=== PATIENT | male | born 1980 | race Caucasian/White ===

== ENCOUNTER 2019-10-06 09:41 | Emergency (ER) | payer OTHER ==
[2019-10-06 09:48] VITALS: RESP 18
[2019-10-06] MEDS ORDERED: KETOROLAC 30 MG/ML 1 ML VIAL IVP STA (10:02)
--- NOTE | 2019-10-06 10:16 | ED ---
ENT HPI - General Chief complaint: Dental/Oral Stated complaint: Dental infection Source: patient Mode of arrival: ambulatory Limitations: no limitations - History of Present Illness Initial comments: Patient is a 39-year-old male presenting to the emergency Department with compl aints of left-sided swelling and dental pain for the past week and a half. Patient states this started approximately 2 weeks ago with some mild swelling of the left side of his face as well as mild dental pain. Patient states he went to a local urgent care and was started on amoxicillin. Patient states the next few days he followed up with his dentist who thought he might have a dental abscess and they did schedule for his tooth to be removed. He was then started on azithromycin. Patient states he currently has 2 days left of the azithromycin. He went to the dentist yesterday however they were not able to pull his tooth secondary to him not being able to open his mouth far enough. The dentist told him to finish his antibiotics and then come back in 2 days for recheck. Patient states he woke up this morning with worsening swelling and worsening pain. Patient states he is barely able to open his mouth at all. He states the swelling has increased into his neck as well. He denies having a fever, nausea, vomiting. Patient states he tried taking some Tylenol for his pain without relief. He is also complaining of left ear pain. He has no other complaints at this time. Upon arrival to the ER, his vital signs are stable. - Related Data Home Medications Medication Instructions Recorded Confirmed Acetaminophen [Tylenol Extra 1,500 mg PO Q8H PRN 10/06/19 10/06/19 Strength] Azithromycin [Zithromax Z-pack] See Taper PO DIRECTED 10/06/19 10/06/19 Echinacea 400 mg PO DAILY 10/06/19 10/06/19 Naproxen [Naprosyn] 500 mg PO BID PRN 10/06/19 10/06/19 Zinc 50 mg PO DAILY 10/06/19 10/06/19 Previous Rx's Medication Instructions Recorded Amoxicillin/Potassium Clav 1 tab PO BID 7 Days #14 tab 10/06/19 [Augmentin 875-125 Tablet] Allergies Allergy/AdvReac Type Severity Reaction Status Date / Time Red meat Allergy Nausea & Uncoded 10/06/19 10:39 Vomiting, fever,stomach pain Review of Systems ROS Statement: Those systems with pertinent positive or pertinent negative responses have been documented in the HPI. ROS Other: All systems not noted in ROS Statement are negative. Past Medical History Past Medical History: No Reported History History of Any Multi-Drug Resistant Organisms: None Reported Past Surgical History: No Surgical Hx Reported Past Psychological History: Anxiety, Depression Smoking Status: Current every day smoker Past Alcohol Use History: None Reported Past Drug Use History: Marijuana General Exam - General Exam Comments Initial Comments: GENERAL: Well-appearing, well-nourished and in no acute distress. HEAD: Atraumatic, normocephalic. EYES: Pupils equal round and reactive to light, extraocular movements intact, sclera anicteric, conjunctiva are normal. ENT: TMs normal, nares patent, oropharynx clear without exudates. Moist mucous membranes. Patient has significant left-sided facial swelling as well as erythema that extends below his left jawline into the left side of his neck. Patient is unable to open his mouth more than an inch, secondary to pain. Upon inspection of his teeth, there are any dental cavities. A full assessment was not able to perform secondary to patient unable to open his mouth. NECK: Normal range of motion. Patient has pain with palpation left side of the neck as well as mild cervical lymph nodes. LUNGS: Breath sounds clear to auscultation bilaterally and equal. No wheezes rales or rhonchi. HEART: Regular rate and rhythm without murmurs, rubs or gallops. ABDOMEN: Soft, nontender, normoactive bowel sounds. No guarding, no rebound. No masses appreciated. : Deferred EXTREMITIES: Normal range of motion, no pitting or edema. No clubbing or cyanosis. NEUROLOGICAL: Normal speech, normal gait. PSYCH: Normal mood, normal affect. SKIN: Warm, Dry, normal turgor, no rashes or lesions noted. Limitations: no limitations Course Vital Signs 10/06/19 10/06/19 10/06/19 09:44 11:29 12:36 Temperature 98 F 98.5 F 100.5 F H Pulse Rate 103 H 73 87 Respiratory 18 18 18 Rate Blood Pressure 129/80 128/78 130/75 O2 Sat by Pulse 100 99 99 Oximetry - Reevaluation(s) Reevaluation #1: 10/06/19 12:12 Dr. Aldrich was consulted. I spoke with Dr. Aldrich and he recommended patient coming in to his office today for tooth extraction as well as a drain placement for the abscess. Dr. Aldrich was also okay with patient being admitted and with him on consult if patient was not able to find a ride to his office today and/or did not want have surgery today. These recommendations were discussed with the patient. Patient will have a friend come pick him up and will take him to the doctor's office. This was again discussed with Dr. Aldrich who will be expecting the patient. Medical Decision Making - Medical Decision Making Patient is a 39-year-old male presenting with left-sided facial swelling and significant pain that has increased over the past week and a half. He has been seeing his dentist for possible dental abscess and has finished a course of amoxicillin and azithromycin. His symptoms drastically increased since last night. Vital signs are stable. Lab work today reveals leukocytosis at 21, CRP is 161. CT of the neck soft tissue reveals a large area that strongly favors a submandibular abscess with significant local mass effect and some mass effect on the airway is deviated to the right. Airway remains patent currently. Patient was started on fluids and Unasyn. Patient is also given pain meds. Case was discussed with Dr. Aldrich. Dr. Aldrich recommended patient come into his office now for tooth extraction as well as a drain placed for the abscess. The patient is in agreement with this and will have a ride from the hospital to Dr. Chavez office. Patient remains stable. Patient is stable for discharge. Patient will be given a prescription for Augmentin to continue outpatient. Patient will not eat or drink anything prior to going to Dr. Chavez office. He is in agreement with this plan of care. Return parameters were discussed with the patient and he verbalized understanding. Case discussed with Dr. Blank who is in agreement with this plan of care. - Lab Data Result diagrams: 10/06/19 10:10 10/06/19 10:10 Lab Results 10/06/19 10/06/19 Range/Units 10:10 10:10 WBC 21.2 H (3.8-10.6) k/uL RBC 4.28 L (4.30-5.90) m/uL Hgb 13.8 (13.0-17.5) gm/dL Hct 41.0 (39.0-53.0) % MCV 95.7 (80.0-100.0) fL MCH 32.1 (25.0-35.0) pg MCHC 33.6 (31.0-37.0) g/dL RDW 12.2 (11.5-15.5) % Plt Count 531 H (150-450) k/uL Neutrophils % 88 % Lymphocytes % 4 % Monocytes % 5 % Eosinophils % 2 % Basophils % 0 % Neutrophils # 18.6 H (1.3-7.7) k/uL Lymphocytes # 0.9 L (1.0-4.8) k/uL Monocytes # 1.0 (0-1.0) k/uL Eosinophils # 0.5 (0-0.7) k/uL Basophils # 0.0 (0-0.2) k/uL ESR 64 H (0-15) mm/hr Sodium 139 (137-145) mmol/L Potassium 4.9 (3.5-5.1) mmol/L Chloride 101 (98-107) mmol/L Carbon Dioxide 30 (22-30) mmol/L Anion Gap 8 mmol/L BUN 9 (9-20) mg/dL Creatinine 0.73 (0.66-1.25) mg/dL Est GFR (CKD-EPI)AfAm >90 (>60 ml/min/1.73 sqM) Est GFR (CKD-EPI)NonAf >90 (>60 ml/min/1.73 sqM) Glucose 162 H (74-99) mg/dL Calcium 9.7 (8.4-10.2) mg/dL Total Bilirubin 0.5 (0.2-1.3) mg/dL AST 20 (17-59) U/L ALT 16 (4-49) U/L Alkaline Phosphatase 112 (38-126) U/L C-Reactive Protein 161.3 H (<10.0) mg/L Total Protein 7.4 (6.3-8.2) g/dL Albumin 4.0 (3.5-5.0) g/dL Disposition Clinical Impression: Dental abscess Disposition: HOME SELF-CARE Condition: Stable Instructions (If sedation given, give patient instructions): Dental Abscess (ED) Additional Instructions: Please return to the Emergency Department if symptoms worsen or any other concerns. Go directly to Dr. Chavez office. Do not eat or drink anything. Continue with antibiotics as directed. Prescriptions: Amoxicillin/Potassium Clav [Augmentin 875-125 Tablet] 1 tab PO BID 7 Days #14 tab Is patient prescribed a controlled substance at d/c from ED?: No Referrals: None,Stated [Primary Care Provider] - 1-2 days Vinnie Aldrich DDS [STAFF PHYSICIAN] - 1-2 days
[2019-10-06 10:20] LABS: Basophils % (A) 0 %; Eosinophils # (A) 0.5 k/uL (0-0.7); Eosinophils % (A) 2 %; HGB 13.8 gm/dL (13.0-17.5); Lymphocytes # (A) 0.9 k/uL (1.0-4.8); Lymphocytes % (A) 4 %; MCH 32.1 pg (25.0-35.0); MCHC 33.6 g/dL (31.0-37.0); MCV 95.7 fL (80.0-100.0); Mean Platelet Volume 7.1; Monocytes % (A) 5 %; Neutrophils # (A) 18.6 k/uL (1.3-7.7); Neutrophils % (A) 88 %; Platelet Count 531 k/uL (150-450); RBC 4.28 m/uL (4.30-5.90); RDW 12.2 % (11.5-15.5); WBC 21.2 k/uL (3.8-10.6)
[2019-10-06 10:35] LABS: ALT 16 U/L (4-49); AST 20 U/L (17-59); African American GFR (CKD) >90 (>60 ml/min/1.73 sqM); Alkaline Phosphatase 112 U/L (38-126); Anion Gap 8 mmol/L; Blood Urea Nitrogen 9 mg/dL (9-20); Calcium 9.7 mg/dL (8.4-10.2); Carbon Dioxide 30 mmol/L (22-30); Chloride 101 mmol/L (98-107); Glucose 162 mg/dL (74-99); Non-African American GFR(CKD) >90 (>60 ml/min/1.73 sqM); Potassium 4.9 mmol/L (3.5-5.1); Sodium 139 mmol/L (137-145); Total Bilirubin 0.5 mg/dL (0.2-1.3); Total Protein 7.4 g/dL (6.3-8.2)
[2019-10-06] MEDS ORDERED: AMPICILLIN-SULBACTAM 3 GM in SODIUM CHLORIDE 0.9% 100 ML IVPB STA (10:40)
[2019-10-06] MEDS ORDERED: SODIUM CHLORIDE 0.9% 1,000 ML IV STA (10:40)
--- NOTE | 2019-10-06 10:54 | CT ---
EXAMINATION TYPE: CT soft tissue neck w con DATE OF EXAM: 10/06/2019 HISTORY: Left side facial pain and swelling COMPARISON: NONE CT DLP: 244.4 mGycm. Automated Exposure Control for Dose Reduction was Utilized. TECHNIQUE: CT scan of the neck is performed with IV Contrast, patient injected with 100 mL of Isovue 300, axial images are obtained, coronal and sagittal reformatted images are reviewed. FINDINGS: Airway: Nasopharyngeal and oropharyngeal airways are patent. Some epiglottis and vallecula are within normal limits. Hypopharyngeal airway and proximal trachea are unremarkable. Visualized upper lungs a re clear. Parotid/submandibular glands: No gross abnormality seen. Carotid/Vascular Structures: No significant plaque or stenosis carotid bulb level. Osseous Structures: Slight grade 1 retrolisthesis C5 on C6 and C6 on C7 . Other: The localizer image shows asymmetric left submandibular swelling. CT images correlate with lar ge hypodense area angle of the mandible measuring 5.6 transversely x 4.0 cm axial image 57 by roughly 3.5 cm craniocaudal dimension coronal image 36. There is heterogeneous peripheral and linear septal enhancement with lobulation at this area. Adjacent mandible is intact without definitive cortical luci truction. A focal lucent area at the premolar root noted sagittal image 59 for reference. Anterior to this there is soft tissue swelling with moderate to severe diffuse subcutaneous edema extending acro ss the midline at the mandibular symphysis. There is significant local mass effect with deviation of carotid vessels posteriorly, left submandibular gland is displaced medially, airway is also slightly displaced roughly 4 mm to the right of midline. There is adjacent prominent adenopathy with loss of f at planes noted. Infectious process or abscess strongly favored. IMPRESSION: As above, area of concern in left submandibular region strongly favors submandibular absc ess with significant local mass effect and some mass effect on the airway is deviated to right of mid line. Airway remains patent currently.
[2019-10-06 10:55] LABS: C Reactive Protein 161.3 mg/L (<10.0)
[2019-10-06] MEDS ORDERED: MORPHINE SULFATE 4 MG/ML SYRINGE IVP STA (11:09)
[2019-10-06 11:55] LABS: Erythrocyte Sedimentation Rate 64 mm/hr (0-15)
[2019-10-06 12:37] VITALS: BP 130/75; PULSE 87; TEMP 100.5
== END 2019-10-06 12:40 | disposition home or self-care (01) ==
LOC: EC 09:41
DX: K04.7 Periapical abscess without sinus (principal); F17.200 Nicotine dependence, unspecified, uncomplicated; Z79.899 Other long term (current) drug therapy; Z91.018 Allergy to other foods
CPT/HCPCS: 36415; 80053; 85652; 85025; 86140; 87040; 70491; 99283; 96365; 96375 ×2; J2270; J1885; J0295; Q9967

== ENCOUNTER 2021-10-30 14:51 | Emergency (ER) | payer BC, OTHER ==
[2021-10-30 15:32] VITALS: RESP 18; TEMP 96.8
[2021-10-30] MEDS ORDERED: KETOROLAC 15 MG/ML 1 ML VIAL IM STA (15:46)
--- NOTE | 2021-10-30 16:16 | XR ---
EXAMINATION TYPE: XR ribs bilat w pa chest x-ray DATE OF EXAM: 10/30/2021 COMPARISON: None available INDICATION: Left-sided rib pain after vomiting last week. TECHNIQUE: 9 images of the chest and bilateral ribs. FINDINGS: Suspected COPD changes. Grossly unremarkable lungs otherwise. No sizable pleural effusion or definite pneumothorax. No gross cardiomegaly. Minimal cortical irregularity of the posterior aspect of the left fifth rib, subtle underlying nondis placed fracture at that location can't be excluded, please correlate clinically. No other definitive fracture identified. IMPRESSION: Suspected nondisplaced fracture at the posterior aspect of the left fifth rib, please correlate clini cyril. Questionable COPD changes.
--- NOTE | 2021-10-30 16:43 | ED ---
General Adult HPI - General Chief complaint: Chest Pain Stated complaint: Dislocated Rib Time Seen by Provider: 10/30/21 15:39 Source: patient Mode of arrival: ambulatory Limitations: no limitations - History of Present Illness Initial comments: Patient is a 41-year-old male who presents to the emergency department with a chief complaint of left rib pain. Patient states he had food poisoning last week and during one episode he vomited very hard and felt one of his ribs pop. Patient has concern that his rib is out of place. He states that he went to an urgent care today who told him to to find a chiropractor in the area but he was unable to find one that can see him this week. Patient seeks pain management. He has no other concerns at this time including fever, chills, headache, shortness of breath, cough, chest pain, abdominal pain, nausea, vomiting, and diarrhea. - Related Data Home Medications Medication Instructions Recorded Confirmed Acetaminophen [Tylenol Extra 1,500 mg PO Q8H PRN 10/06/19 10/06/19 Strength] Azithromycin [Zithromax Z-pack] See Taper PO DIRECTED 10/06/19 10/06/19 Echinacea 400 mg PO DAILY 10/06/19 10/06/19 Naproxen [Naprosyn] 500 mg PO BID PRN 10/06/19 10/06/19 Zinc 50 mg PO DAILY 10/06/19 10/06/19 Previous Rx's Medication Instructions Recorded Amoxicillin/Potassium Clav 1 tab PO BID 7 Days #14 tab 10/06/19 [Augmentin 875-125 Tablet] Lidocaine [Lidoderm 5% Patch] 1 patch TRANSDERM DAILY PRN 7 Days 10/30/21 #7 patch Allergies Allergy/AdvReac Type Severity Reaction Status Date / Time Red meat Allergy Nausea & Uncoded 10/30/21 15:32 Vomiting, fever,stomach pain Review of Systems ROS Statement: Those systems with pertinent positive or pertinent negative responses have been documented in the HPI. ROS Other: All systems not noted in ROS Statement are negative. Past Medical History Past Medical History: No Reported History Additional Past Medical History / Comment(s): chronic diverticolosis History of Any Multi-Drug Resistant Organisms: None Reported Past Surgical History: No Surgical Hx Reported Past Psychological History: Anxiety, Depression Smoking Status: Vaper Past Alcohol Use History: None Reported Past Drug Use History: Marijuana General Exam Limitations: no limitations General appearance: alert, in no apparent distress Head exam: Present: atraumatic, normocephalic, normal inspection Eye exam: Present: normal appearance, PERRL, EOMI. Absent: scleral icterus, conjunctival injection, periorbital swelling Neck exam: Present: normal inspection Respiratory exam: Present: normal lung sounds bilaterally. Absent: respiratory distress, wheezes, rales, rhonchi, stridor, chest wall tenderness, decreased breath sounds Cardiovascular Exam: Present: regular rate, normal rhythm, normal heart sounds. Absent: systolic murmur, diastolic murmur, rubs, gallop, clicks GI/Abdominal exam: Present: soft, normal bowel sounds. Absent: distended, tenderness, guarding, rebound, rigid Back exam: Present: normal inspection, full ROM, tenderness (Left thoracic region near ribs. No overlying erythema, ecchymosis, or obvious deformity) Neurological exam: Present: alert, oriented X3, CN II-XII intact Skin exam: Present: warm, dry, intact, normal color. Absent: rash Course Vital Signs 10/30/21 10/30/21 15:28 17:10 Temperature 96.8 F L Pulse Rate 82 72 Respiratory 18 18 Rate Blood Pressure 143/105 156/87 O2 Sat by Pulse 98 98 Oximetry Medical Decision Making - Medical Decision Making This is a 41-year-old male who presents with left rib pain likely due to forceful vomiting last week. Thorough history and examination were performed. Patient states his nausea and vomiting has since resolved. He is not short of breath. His lungs are clear to auscultation bilaterally. Chest x-ray with the bilateral ribs was obtained which shows suspected nondisplaced fracture at the posterior aspect of the left fifth rib and questionable COPD changes. Patient given Toradol for pain. Results were discussed with patient who will be discharged with Lidoderm patches. Patient performed incentive spirometry with respiratory therapist and will be sent home with spirometer. Rib fracture education was provided. He is encouraged to use spirometer as directed to prevent pneumonia. I also discussed incidental findings on x-ray and patient is instructed to follow-up with primary care provider. He verbalizes understanding and is agreeable to plan. Dr. Alfaro is my attending. Disposition Clinical Impression: Closed rib fracture Disposition: HOME SELF-CARE Condition: Good Instructions (If sedation given, give patient instructions): How to Use an Incentive Spirometer (ED), Rib Fracture (ED) Additional Instructions: Please use incentive spirometry as directed to prevent pneumonia. Use Lidoderm patches as prescribed. You may take Tylenol or Motrin as needed for pain. Follow-up with primary care provider for suspected chronic obstructive pulmonary disease on x-ray. Return to the emergency department if you experience new, concerning, or worsening symptoms. Prescriptions: Lidocaine [Lidoderm 5% Patch] 1 patch TRANSDERM DAILY PRN 7 Days #7 patch PRN Reason: Pain Is patient prescribed a controlled substance at d/c from ED?: No Referrals: None,Stated [Primary Care Provider] - 1-2 days
[2021-10-30 17:11] VITALS: BP 156/87; PULSE 72
== END 2021-10-30 17:10 | disposition home or self-care (01) ==
LOC: EC 14:51
DX: S22.32XA Fracture of one rib, left side, initial encounter for closed fracture (principal); Z91.018 Allergy to other foods; F17.209 Nicotine dependence, unspecified, with unspecified nicotine-induced disorders
CPT/HCPCS: 71111; 99284; 96372; J1885